=== PATIENT | male | born 1990 | race Caucasian/White ===

== ENCOUNTER 2018-12-13 20:10 | Observation (INO) | payer OTHER, MEDICAID ==
[~2018-12-13] VITALS: Ht 175.3 cm; Wt 60.0 kg
[2018-12-13 21:35] LABS: MEAN PLATELET VOLUME 9.3 FL (7.4-10.4); MONOCYTES # (AUTO) 0.9 X10'3 (0-0.9); NEUTROPHILS # (AUTO) 7.4 X10'3 (1.8-7.7); WHITE BLOOD COUNT 10.4 X10'3 (4.5-11.0)
[2018-12-13 21:37] LABS: BASOPHILS % (AUTO) 0.2 % (0-1); EOSINOPHILS # (AUTO) 0.4 X10'3 (0-0.9); EOSINOPHILS % (AUTO) 3.6 % (0-6); HEMATOCRIT 42.8 % (42.0-52.0); HEMOGLOBIN 14.6 g/dl (14.0-17.9); LYMPHOCYTES # (AUTO) 1.7 X10'3 (1.1-4.8); LYMPHOCYTES % (AUTO) 16.3 % (21-51); MEAN CORPUSCULAR HEMOGLOBIN 32.8 PG (27.0-31.0); MEAN CORPUSCULAR HGB CONC 34.2 g/dL (33.0-36.5); MEAN CORPUSCULAR VOLUME 95.9 FL (78-98); MONOCYTES % (AUTO) 8.4 % (2-12); NEUTROPHILS % (AUTO) 71.5 % (42-75); PLATELET COUNT 194 X10'3 (140-440); RED BLOOD COUNT 4.46 X10'6 (4.70-6.10); RED CELL DISTRIBUTION WIDTH 13.2 % (11.5-14.5)
[2018-12-13 21:38] LABS: PARTIAL THROMBOPLASTIN TIME 27 SECONDS (22-32); PROTHROMBIN TIME 10.4 SECONDS (9.0-12.0)
[2018-12-13 21:40] LABS: ALANINE AMINOTRANSFERASE 12 U/L (12-78); ALBUMIN 4.3 G/DL (3.4-5.0); ALBUMIN/GLOBULIN RATIO 1.3 (1.1-1.5); ALKALINE PHOSPHATASE 76 IU/L (46-116); ANION GAP 12 (8-16); ASPARTATE AMINO TRANSFERASE 8 U/L (10-37); BILIRUBIN,TOTAL 0.4 MG/DL (0.1-1.0); BLOOD UREA NITROGEN 14 MG/DL (7-18); BUN/CREATININE RATIO 11.2 (5.4-32.0); CALCIUM 9.7 MG/DL (8.5-10.1); CHLORIDE 105 MMOL/L (99-107); CREATININE 1.25 MG/DL (0.60-1.10); GLUCOSE 92 MG/DL (70-104); POTASSIUM 3.8 MMOL/L (3.5-5.1); SODIUM 143 MMOL/L (135-145); TOTAL CARBON DIOXIDE 26.3 MMOL/L (24-32); TOTAL PROTEIN 7.6 G/DL (6.4-8.2); eGFR 68 ML/MIN
--- NOTE | 2018-12-13 21:41 | NUR ---
PT MOVED TO ROOM 16, REPORT TO JESS OJEDA
[2018-12-13 21:46] LABS: LIPASE 88 U/L (73-393)
[2018-12-13] MEDS ORDERED: morphine 4 MG/ML inj SYRINge IV ONE (22:05)
[2018-12-13] MEDS ORDERED: aspirin 325mg tablet PO ONE (22:05)
[2018-12-13 22:18] LABS: ETHANOL < 0.010 GM/DL (0.0-0.010)
[2018-12-13 22:30] LABS: URINE AMPHETAMINE SCREEN NEGATIVE (Neg); URINE BARBITUATE SCREEN NEGATIVE (Neg); URINE BENZODIAZEPINES SCREEN NEGATIVE (Neg); URINE CANNABINOID SCREEN NEGATIVE (Neg); URINE COCAINE SCREEN NEGATIVE (Neg); URINE METHADONE SCREEN NEGATIVE (Neg); URINE OPIATE SCREEN NEGATIVE (Neg); URINE PHENCYCLIDINE SCREEN NEGATIVE (Neg)
[2018-12-13] MEDS ORDERED: magnesium hydroxide 30ml (MOM) UD suspension PO PRN (22:55)
[2018-12-13] MEDS ORDERED: acetaminophen 325mg tablet PO PRN ×2 (22:55)
[2018-12-13] MEDS ORDERED: ondansetron/PF 4mg/2ml inj IV PRN (22:55)
[2018-12-13 23:03] LABS: D-DIMER < 0.19 MG/L FEU (0-0.50)
[2018-12-13] MEDS ORDERED: NO HOME MEDS (23:06)
--- NOTE | 2018-12-14 08:44 | NUR ---
AWAKE AND ALERT. RESP UNLABORED. VSS. STATES STILL FEELING ANXIOUS, BUT STATES HE WAS FEELING BETTER AFTER RECEIVING MORPHINE EARLIER. HR 75. SINUS RHYTHM ON INSURANCE ADMINISTRATOR. AWAITING INPATIENT BED ASSIGNMENT.
--- NOTE | 2018-12-14 11:53 | NUR ---
Received report from Melly OJEDA in the ER. Waiting for patient arrival.
--- NOTE | 2018-12-14 12:20 | NUR ---
Patient arrived to room at this time.
--- NOTE | 2018-12-14 13:44 | NUR ---
Paged hospitalist, "Emily [id number]- Room 7529H [place], Transitions back and forth from SR to Junctional rhythm. FYI." Waiting on callback.
--- NOTE | 2018-12-14 14:18 | NUR ---
Called Dr. Prado and left voicemail to call back, mentioned needing to make him aware of a patient who's rhythm is going back and forth between SR and Junctional. No c/o per patient. Waiting on callback.
[2018-12-14 15:00] VITALS: BP 103/57
--- NOTE | 2018-12-14 16:15 | NUR ---
Paged Dr. Rosenbaum through doctor page services r/t patient's heart rhythm. Waiting on callback.
--- NOTE | 2018-12-14 16:38 | NUR ---
Received callback from Dr. Prado re: Junctional and NSR. States he will take a look at his rhythm.
[2018-12-14 18:00] VITALS: BP 110/62
--- NOTE | 2018-12-14 18:36 | NUR ---
Problems reprioritized. Patient report given, questions answered & plan of care reviewed with Betsy OJEDA.
--- NOTE | 2018-12-14 19:04 | NUR ---
Patient in room PCU 3012. I have received report from Yee OJEDA and had the opportunity to ask questions and assume patient care.
[2018-12-14] MEDS: mag hydrox/Alum hydrox/simeth 30ml oral suspension PO PRN (20:42)
[2018-12-14 22:00] VITALS: BP 107/52
[2018-12-15 02:00] VITALS: BP 96/51
[2018-12-15 06:00] VITALS: BP 96/51
--- NOTE | 2018-12-15 06:30 | NUR ---
Patient in room PCU 3012. I have received report from Verónica OJEDA and had the opportunity to ask questions and assume patient care. Patient resting comfortably in bed. In no acute distress. Will continue to monitor.
--- NOTE | 2018-12-15 07:59 | NUR ---
Problems reprioritized. Patient report given, questions answered & plan of care reviewed with Liz OJEDA.
[2018-12-15] MEDS: mag hydrox/Alum hydrox/simeth 30ml oral suspension PO PRN (09:41)
[2018-12-15] MEDS ORDERED: OMEP40CA37 PO (10:58)
[2018-12-15 11:00] VITALS: BP 95/47
--- NOTE | 2018-12-15 14:20 | NUR ---
Patient stable for discharge per MD orders. All discharge instructions reviewed with patient and all questions answered. Patient to follow up with PCP in 3-4 days and get referral to cardiology. PIV discontinued - cannula intact. Telemetry monitoring discontinued. Patient instructed to return to ER for new onset chest pain. All patient belongings sent with patient in private vehicle. Patient wheeled out to lobby by RN, accompanied by family.
== END 2018-12-15 14:15 | disposition home or self-care (01) ==
LOC: ER 20:11 → ED HOLD 22:52 → PCU 3S 12-14 12:15
PROVIDERS: ADMIT Hospitalist; ATTEND Family Medicine
DX: R07.89 Other chest pain (principal); F41.9 Anxiety disorder, unspecified; R94.31 Abnormal electrocardiogram [ECG] [EKG]; K21.9 Gastro-esophageal reflux disease without esophagitis
CPT/HCPCS: 36415; 71045; 80053; 80305; 80320; 83690; 83735; 83880; 84443; 84484; 85025; 85379; 85610; 85730; 93005; 93306; 96374; 99284; G0378; J2270

== ENCOUNTER 2019-07-16 08:28 | Day surgery (SDC) | payer OTHER, MEDICAID ==
[~2019-07-16] VITALS: Ht 175.3 cm; Wt 68.9 kg
[~2019-07-16 08:28] MED LIST: NO HOME MEDS; cefazolin/dext.iso 2gm/50ml 50 ML IV ONE; famotidine 20mg tablet PO ONE; ringers solution, lacted 1,000 ML IV SCH
[2019-07-16 09:50] VITALS: BP 120/75
[2019-07-16 09:55] VITALS: BP 120/75
[2019-07-16] MEDS ORDERED: ringers solution, lacted 1,000 ML IV SCH (10:11)
[2019-07-16] MEDS ORDERED: morphine 4 MG/ML inj SYRINge IV PRN ×2 (10:15)
[2019-07-16] MEDS ORDERED: proCHLORperazine 10 MG/2 ml inj IV PRN (10:15)
[2019-07-16] MEDS ORDERED: ondansetron/PF 4mg/2ml inj IV PRN (10:15)
[2019-07-16] MEDS ORDERED: meperidine/PF 25mg/ml syringe IV PRN ×3 (10:15)
[2019-07-16] MEDS ORDERED: MIDAZolam 5mg/5ml vial ONE (11:22)
[2019-07-16] MEDS ORDERED: fentaNYL/PF 50MCG/1 ML 2ML syringe ONE (11:22)
[2019-07-16] MEDS ORDERED: LIDOcaine 1% 30ml preserv. free vial ONE (11:28)
[2019-07-16 11:47] VITALS: BP 124/70
--- NOTE | 2019-07-16 11:47 | NUR ---
ADMITTED TO PACU FROM OR ACCOMPANIED BY ANESTHESIA. INTIAL PHYSICAL ASSESSMENT DONE AND RECORDED. AWAKE AND RESPONSE ON ARRIVE YO PACU, REPORT RECEIVED FROM ANESTHESIA. MAC PROCEDURE DISCHARGE AFTER VS
[2019-07-16 11:57] VITALS: BP 122/72
[2019-07-16 12:10] VITALS: BP 120/70
--- NOTE | 2019-07-16 12:10 | NUR ---
Discharge criteria met, discharge instructions given, demonstrates verbal understanding. Discharged home in good condition.
== END 2019-07-16 12:10 | disposition home or self-care (01) ==
LOC: PAS 08:28
PROVIDERS: ATTEND Surgery
DX: D18.09 Hemangioma of other sites (principal); F41.9 Anxiety disorder, unspecified; F17.290 Nicotine dependence, other tobacco product, uncomplicated; Z79.899 Other long term (current) drug therapy
CPT/HCPCS: 24076; 82948; J2001; J2250; J3010; A4215; A4618; A6449; A7000; J7120

== ENCOUNTER 2023-08-08 06:02 | Day surgery (SDC) | payer BC, MEDICAID ==
[~2023-08-08] VITALS: Ht 175.3 cm; Wt 63.4 kg
[2023-08-08] VITALS (11 sets, daily range): BP systolic 128–151; BP diastolic 88–96; PULSE 52–62; RESP 10–18; TEMP 98.3; O2SAT 95–100
[~2023-08-08 06:02] MED LIST changes: +CYCL10TA25 PO; +FAMO20TA8 PO; +HYDR-3717 PO; +MULT-1085 PO; -NO HOME MEDS; +THEA200C PO; -cefazolin/dext.iso 2gm/50ml 50 ML IV ONE
[2023-08-08] MEDS ORDERED: cocaine 4% topical solution 4ml bottle ONE (06:55)
[2023-08-08] MEDS ORDERED: oxymetazoline 15 ML nasal spray NS ONE ×3 (06:56→08:25)
[2023-08-08] MEDS ORDERED: mupirocin 2% ointment 22GM ONE ×2 (06:56→07:07)
[2023-08-08] MEDS ORDERED: gelatin sponge, absorbable (Gelfoam 100) sponge TP ONE (06:56)
[2023-08-08] MEDS ORDERED: LIDOcaine 1% w/EPI 1:100,000 inj. MDV 50 ML VIAL ONE (06:56)
[2023-08-08] MEDS ORDERED: fentaNYL/PF 50MCG/1 ML 2ML syringe ONE (07:41)
[2023-08-08] MEDS ORDERED: midazolam 1 mg/ML 2ml injection ONE (07:41)
[2023-08-08] MEDS ORDERED: propofol inj 20 ML IV ONE (07:41)
[2023-08-08] MEDS ORDERED: ondansetron/PF 4mg/2ml inj IV PRN (07:50)
[2023-08-08] MEDS ORDERED: meperidine/PF 25mg/ml syringe IV PRN ×3 (07:50)
[2023-08-08] MEDS ORDERED: ringers solution, lacted 1,000 ML IV SCH (07:50)
[2023-08-08] MEDS ORDERED: morphine 4 MG/ML inj SYRINge IV PRN (07:50)
[2023-08-08] MEDS ORDERED: proCHLORperazine 10 MG/2 ml inj IV PRN (07:50)
[2023-08-08] MEDS ORDERED: morphine 2 MG/ML inj. syringe IV PRN (07:50)
[2023-08-08] MEDS ORDERED: sevoflurane 250ml liquid IH ONE (07:58)
[2023-08-08] MEDS ORDERED: salt irrigation nasal spray 45 ML SPRAY NS ONE (08:10)
[2023-08-08] MEDS ORDERED: dexamethasone sod phosphate 4mg/ml inj. ONE (08:14)
[2023-08-08] MEDS ORDERED: mupirocin 2% nasal ointment 1gm UD NS ONE (08:25)
[2023-08-08] MEDS ORDERED: cocaine 4% topical solution 4ml bottle TP ONE (08:25)
[2023-08-08] MEDS ORDERED: LIDOcaine 1% w/EPI 1:100,000 30ml vial (MDV) IJ ONE (08:25)
[2023-08-08] MEDS ORDERED: ondansetron/PF 4mg/2ml inj ONE (08:32)
--- NOTE | 2023-08-08 09:29 | NUR ---
Received from OR via [facility], accompanied by Anesthesiologist and report given by BESS Anesthesiologist. PATIENT ARRIVED ON LMA, UNCONCSIOUS, NO S/S OF PAIN, VSS, 20G PIV TO RIGHT FOREARM, BILATERAL COTTONOID DRESSING C/D/I. Addendum: 08/08/23 at 0942 by Travon Cooper RN Amended: Links added.
[2023-08-08] MEDS ORDERED: salt irrigation nasal spray 45 ML SPRAY NS PRN (09:35)
--- NOTE | 2023-08-08 10:00 | NUR ---
PULLED COTTONOID DRESSING BILATERALLY, OOZED BLOOD NOTED FROM RIGHT NOSTRIL AT THIS TIME. APPLIED GAUZE AND MOSTACHE DRESSING. PATIENT TOLERATED PROCEDURE WELL.
[2023-08-08] MEDS ORDERED: mupirocin 2% nasal ointment 1gm UD NS SCH ×2 (10:20→20:00)
--- NOTE | 2023-08-08 10:39 | NUR ---
PT UP AND DRESSED, VSS, DENIES ANY PAIN, PIV D/CD- CANNULA INTACT, DISCUSSED HOME CARE FOR NASAL IRRIGATION AND MEDICATIONS, PT USED OCEAN SPRAY AND OINTMENT BEFORE LEAVING, ALL QUESTIONS ANSWERED, FRESH GAUZE PLACE UNDER NOSE, PT TAKEN WITH SUPPLIES AND BELONGINGS TO VEHICLE, TRANSPORTED BY FATHER HOME. Addendum: 08/08/23 at 1047 by Travon Cooper RN Amended: Links added.
== END 2023-08-08 10:39 | disposition home or self-care (01) ==
LOC: PAS 06:02
PROVIDERS: ATTEND Otolaryngology
DX: J34.2 Deviated nasal septum (principal); J34.3 Hypertrophy of nasal turbinates; K21.9 Gastro-esophageal reflux disease without esophagitis; F41.9 Anxiety disorder, unspecified; M41.9 Scoliosis, unspecified; Z88.8 Allergy status to other drugs, medicaments and biological substances; Z79.899 Other long term (current) drug therapy; F17.290 Nicotine dependence, other tobacco product, uncomplicated; Z98.890 Other specified postprocedural states
CPT/HCPCS: 30140; 30520; 82948; A6402; J1100; J2175; J2250; J2405; J2704; J3010; J3490; J7030; J7120; Z7506; Z7508; Z7512; A4618; A6449; A7000

== ENCOUNTER 2025-09-09 06:00 | Day surgery (SDC) | payer BC ==
[2025-09-09] VITALS (12 sets, daily range): BP systolic 110–135; BP diastolic 70–88; PULSE 56–83; RESP 11–18; TEMP 98.6; O2SAT 98–100
[~2025-09-09] VITALS: Ht 175.3 cm; Wt 80.9 kg
[2025-09-09] MEDS: tranexamic acid 1gm/0.7% sal. 100 ML IV ONE (05:30)
[2025-09-09] MEDS: ceFAZolin 2gm/dext,iso 50mL 50 ML IV ONE (05:30)
[~2025-09-09 06:00] MED LIST changes: +AZEL137S4 BOTHNARES; -CYCL10TA25 PO; -FAMO20TA8 PO; +FLUT16SP26 BOTHNARES; -HYDR-3717 PO; +LORA10TA7 PO; -MULT-1085 PO; -THEA200C PO; -famotidine 20mg tablet PO ONE; -ringers solution, lacted 1,000 ML IV SCH
[2025-09-09] MEDS ORDERED: cocaine 4% topical solution 4ml bottle ONE (06:37)
[2025-09-09] MEDS ORDERED: LIDOcaine 1% W/epiNEPHrine 1:100,000 20ml vial ONE (06:38)
[2025-09-09] MEDS ORDERED: epiNEPHrine 1 mg/ml 30ml MDV ONE (06:38)
[2025-09-09] MEDS ORDERED: methylPREDNISolone acetate 80mg/ml inj**IM only ONE (06:39)
[2025-09-09] MEDS ORDERED: oxymetazoline 15 ML nasal spray NS ONE (06:39)
[2025-09-09] MEDS: ringers solution, lacted 1,000 ML IV SCH (06:54)
[2025-09-09] MEDS: oxymetazoline 15 ML nasal spray NS SCH (07:28)
[2025-09-09] MEDS ORDERED: fentaNYL/PF 50MCG/1 ML 2ML syringe ONE (08:18)
[2025-09-09] MEDS ORDERED: midazolam 1 mg/ML 2ml injection ONE (08:19)
[2025-09-09] MEDS ORDERED: morphine 4 MG/ML inj SYRINge IV PRN (08:40)
[2025-09-09] MEDS ORDERED: labetalol 20mg/4ml (5mg/ml) syringe IV PRN (08:40)
[2025-09-09] MEDS ORDERED: ondansetron/PF 4mg/2ml inj ONE (08:40)
[2025-09-09] MEDS ORDERED: propofol inj 20 ML IV ONE (08:40)
[2025-09-09] MEDS ORDERED: HYDROmorphone/PF 0.2 MG/ML SYRINGE IV PRN ×2 (08:40)
[2025-09-09] MEDS ORDERED: hydrALAZINE 20mg/ml inj. IV PRN (08:40)
[2025-09-09] MEDS ORDERED: ringers solution, lacted 1,000 ML IV SCH (08:40)
[2025-09-09] MEDS ORDERED: LIDOcaine 2% (20mg/ml) 5ml vial ONE (08:40)
[2025-09-09] MEDS ORDERED: salt irrigation nasal spray 45 ML SPRAY NS PRN (09:55)
[2025-09-09] MEDS: acetaminophen 1,000mg/100ml IV 100 ML IV PRN (10:00)
[2025-09-09] MEDS: ondansetron/PF 4mg/2ml inj IV PRN (10:05)
--- NOTE | 2025-09-09 11:04 | OPERATIVE REPORT ---
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 PROCEDURES: 1. Nasal endoscopy surgical with left partial ethmoidectomy. 2. Left medial maxillectomy. 3. Stereotactic computer-assisted navigational procedure, extracranial. SURGEON: Dr. Josue Tyler. ANESTHESIA: General laryngeal mask, Dr. Rubio. HISTORY: The patient is a 35-year-old male with recurrent acute rhinosinusitis multiple times refractory to maximum medical therapy. The history is interesting in that the patient had undergone a septoplasty 2 years ago. At that point, we had seen the snehal cyst, but since the patient had not had any infections for 1 year, we felt that the surgery of the cyst was not necessary and this was explained to the patient and he agreed. 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 The risks, alternatives, and benefits of surgery were explained to the patient and accepted. PROCEDURE: The patient was brought to the operating room, given a general laryngeal mask anesthesia and prepped and draped in the usual fashion with 1% Xylocaine with 100,000 epinephrine was infiltrated into the planned surgical sites utilizing headlight and endoscope. Image-guided system was attached to the patient and calibration and verification satisfactorily accomplished. The reason we had chosen to carry out this procedure under image guidance was the presence of a mass in close proximity to the orbit. After a suitable time lapsed for vasoconstriction, the operatives commenced with the left middle medial maxillary antrostomy. This was carried out as follows. The uncinate process was removed. A posterior fontanelle entry was made and a back biter was used to enlarge the middle medial maxillary antrostomy at the expense of the posterior fontanelle. Through this, we could see the roof of the cyst and the lateral wall of the cyst. We attempted to remove the cyst through the middle medial maxillary antrostomy, but all efforts were unsuccessful. We continued to operate by removing inflammatory tissue from the anterior ethmoid. This was done with microshaver and through-cut instrumentation. At no time was the lamina papyracea penetrated. With this greater opening, we attempted further to remove the cyst through the middle medial maxillary antrostomy, but again our efforts were unsuccessful. Therefore, the decision was made to create a medial maxillectomy so that the cyst could be removed in its entirety. To carry this out, we removed the middle one-third of the left inferior turbinate. We then drilled the conchal bone, which was quite solid and could not be removed with microshaver. The medial wall of the maxillary sinus was drilled down to the floor of the nasal cavity and through this now widened opening, we were able to remove the entirety of the cyst. Further evaluation of the maxillary sinus using a 70-degree endoscope revealed no remaining cystic lining. At the end of the procedure, hemostasis was intact. The left maxillary sinus was filled with PosiSep, which had been soaked in thrombin and Marcaine and the same material was used to fill the left anterior ethmoid. The patient tolerated these procedures well with the accompaniment of a minimal blood loss. The patient was then awakened, extubated, and returned to the recovery room in stable condition. Josue Tyler MD TID: [id number] RECEIPT: [id number] DEVANTE/PA cc: Reyes Mcgowan DDS
== END 2025-09-09 11:35 | disposition home or self-care (01) ==
LOC: PAS 06:00
PROVIDERS: ATTEND Otolaryngology
DX: J32.8 Other chronic sinusitis (principal); J34.1 Cyst and mucocele of nose and nasal sinus; K21.9 Gastro-esophageal reflux disease without esophagitis; G47.33 Obstructive sleep apnea (adult) (pediatric); F41.9 Anxiety disorder, unspecified; F17.290 Nicotine dependence, other tobacco product, uncomplicated; Z86.73 Personal history of transient ischemic attack (TIA), and cerebral infarction without residual deficits; Z79.899 Other long term (current) drug therapy; Z98.890 Other specified postprocedural states; Z88.8 Allergy status to other drugs, medicaments and biological substances
CPT/HCPCS: 31254; 31267; 61782; 82948; A6258; A6402; J0131; J0169; J2003; J2250; J2270; J2405; J2704; J3010; J3490; J7030; J7040; J7120; Z7506; Z7508; Z7512; A4618; A6449; A7000; J1010